=== PATIENT | male | born 1975 | race American Indian/Alaskan Native ===

== ENCOUNTER 2017-06-15 01:13 | Observation (INO) | payer MEDICAID, OTHER ==
--- NOTE | 2017-06-15 02:01 | ED PDOC ---
Arrival/HPI - General Time Seen by Provider: 06/15/17 01:57 Historian: Patient - History of Present Illness Narrative History of Present Illness (Text): 06/15/17 02:00 Shoaib Corrales is a 42 year old male, whose past medical history includes Crohn's disease and prostate cancer, who presents to the Emergency department complaining of diffuse abdominal pain for the past 3 days. Patient reports associated nausea, vomiting, and diarrhea. Patient states he is currently visiting from [place] and did not bring his medication with him. Patient denies any fever, chills, chest pain, shortness of breath, urinary symptoms, back pain, neck pain, headache, dizziness, or any other complaints. Time/Duration: < week (3 days) Symptom Onset: Gradual Symptom Course: Unchanged Activities at Onset: Light Context: Home Past Medical History - Provider Review Nursing Documentation Reviewed: Yes Family/Social History - Physician Review Nursing Documentation Reviewed: Yes Family/Social History: Unknown Family HX Allergies/Home Meds Allergies/Adverse Reactions: Allergies codeine Allergy (Verified 06/15/17 02:00) ITCHING Home Medications: Home Meds Medication Instructions Recorded Confirmed Unobtainable 06/15/17 06/15/17 Review of Systems - Physician Review All systems were reviewed & negative as marked: Yes - Review of Systems Constitutional: Normal. absent: Fevers Eyes: Normal ENT: Normal Respiratory: Normal. absent: SOB, Cough Cardiovascular: Normal. absent: Chest Pain Gastrointestinal: Abdominal Pain, Diarrhea, Nausea, Vomiting Genitourinary Male: Normal. absent: Dysuria, Frequency, Hematuria, Urinary Output Changes Musculoskeletal: Normal. absent: Back Pain, Neck Pain Skin: Normal. absent: Rash Neurological: Normal. absent: Headache, Dizziness Endocrine: Normal Hemo/Lymphatic: Normal Psychiatric: Normal Physical Exam Vital Signs Reviewed: Yes Vital Signs Temp Pulse Resp Pulse Ox 06/15/17 02:00 97.9 F 93 H 18 95 Temperature: Afebrile Blood Pressure: Normal Pulse: Regular Respiratory Rate: Normal Appearance: Positive for: Well-Appearing, Non-Toxic, Comfortable Pain Distress: None Mental Status: Positive for: Alert and Oriented X 3 - Systems Exam Head: Present: Atraumatic, Normocephalic Pupils: Present: PERRL Extroacular Muscles: Present: EOMI Conjunctiva: Present: Normal Mouth: Present: Moist Mucous Membranes Neck: Present: Normal Range of Motion Respiratory/Chest: Present: Clear to Auscultation, Good Air Exchange. No: Respiratory Distress, Accessory Muscle Use Cardiovascular: Present: Regular Rate and Rhythm, Normal S1, S2. No: Murmurs Abdomen: Present: Tenderness (Diffuse abdominal tenderness), Normal Bowel Sounds. No: Distention, Peritoneal Signs Back: Present: Normal Inspection Upper Extremity: Present: Normal Inspection. No: Cyanosis, Edema Lower Extremity: Present: Normal Inspection. No: Edema Neurological: Present: GCS=15, CN II-XII Intact, Speech Normal Skin: Present: Warm, Dry, Normal Color. No: Rashes Psychiatric: Present: Alert, Oriented x 3, Normal Insight, Normal Concentration Medical Decision Making ED Course and Treatment: 06/15/17 02:00 Impression: 42 year old male complaining of diffuse abdominal pain, nausea, vomiting, diarrhea for the past 3 days. Plan: -- CT Abdomen and Pelvis with IV contrast -- Labs, lipase -- Urinalysis -- IV fluids -- Zofran -- Pepcid -- Dilaudid -- Reassess and disposition Progress Notes: 06/15/17 05:05 CT Abdomen and Pelvis shows: Limitations: Lack of intravenous contrast. Motion artifact - mild. Lower thorax: Paraseptal emphysematous changes. Minimal atelectasis. LEFT lower lobe calcified granuloma. ABDOMEN: Liver: Low-attenuation lesion with benign imaging features. Gallbladder and bile ducts: No calcified stones. No ductal dilation. Pancreas: Unremarkable. No ductal dilation. Spleen: Few splenic calcifications. No splenomegaly. Adrenals: Mild hypertrophy of adrenal glands. Kidneys and ureters: No renal calculi. No hydronephrosis. Stomach and bowel: No definite mural thickening. No obstruction. Appendix: Normal caliber. No inflammation. Appendicolith. PELVIS: Bladder: Unremarkable. No stones. Reproductive: Mildly enlarged prostate. ABDOMEN and PELVIS: Intraperitoneal space: No significant fluid collection. No free air. Bones/joints: No acute fracture. Soft tissues: Unremarkable. Vasculature: Unremarkable. No aneurysm. Lymph nodes: No pathologically enlarged lymph nodes. IMPRESSION: 1. No definite acute intraabdominal abnormality. 2. Liver lesion. No follow-up is necessary. 3. Incidental/non-acute findings are described above. 06/15/17 05:[address] Castaneda, who requests pt go to hospitalist service. 06/15/17 05:33 Case discussed with biomedical equipment support specialist media liaison officer, who is aware and agrees with plan. Case discussed with Dr. Evelin Bonilla, who is aware and agrees with plan. Accepts pt in to hospitalist service. - Lab Interpretations Lab Results: 06/15/17 02:38 06/15/17 02:38 Lab Results 06/15/17 02:38: WBC 7.5, RBC 4.87, Hgb 14.4, Hct 43.0, MCV 88.3, MCH 29.6, MCHC 33.5, RDW 14.8 H, Plt Count 354, MPV 9.4 06/15/17 02:38: Sodium 135, Potassium 4.1, Chloride 101, Carbon Dioxide 22, Anion Gap 16, BUN 15, Creatinine 1.0, Est GFR ( Amer) > 60, Est GFR (Non- Af Amer) > 60, Random Glucose 87, Calcium 9.0, Total Bilirubin 0.7, AST 45, ALT 39, Alkaline Phosphatase 70, Total Protein 7.6, Albumin 4.5, Globulin 3.1, Albumin/Globulin Ratio 1.5, Lipase 691 H I have reviewed the lab results: Yes - RAD Interpretation Radiology Orders: 06/15/17 03:11 ABD & PELVIS W/O PO OR IV CONT [CT] Stat Pleat Taper: Radiologist - Medication Orders Current Medication Orders: Discontinued Medications Famotidine (Pepcid) 20 mg IVP STAT STA Stop: 06/15/17 02:06 Last Admin: 06/15/17 02:41 Dose: 20 mg IVP Administration Document 06/15/17 02:41 [email or web address] (Rec: 06/15/17 02:41 CAST [id number]) Charges for Administration # of IVP Administrations 1 Hydromorphone HCl (Dilaudid) 1 mg IVP STAT STA Stop: 06/15/17 02:06 Last Admin: 06/15/17 02:40 Dose: 1 mg MAR Pain Assessment Document 06/15/17 02:40 [email or web address] (Rec: 06/15/17 02:41 [email or web address] [id number]) Pain Reassessment Is this a pain reassessment? No Sleep Is patient sleeping during reassessment? No Presence of Pain Presence of Pain Yes Pain Scale Used Pain Scale Used Numeric Location Pain Location Body Site Abdomen Description Description Constant Intensity of Pain at present 9 Pain Behavior Facial Grimacing Aggravating Factors Changing Position Alleviating Factors/Management Position Change Techniques Alleviating Factors Medication IVP Administration Document 06/15/17 02:40 [email or web address] (Rec: 06/15/17 02:41 [email or web address] [id number]- [id number]) Charges for Administration # of IVP Administrations 1 Hydromorphone HCl (Dilaudid) 2 mg IVP STAT STA Stop: 06/15/17 03:12 Last Admin: 06/15/17 03:38 Dose: 2 mg MAR Pain Assessment Document 06/15/17 03:38 ANETTE (Rec: 06/15/17 03:38 ANETTE [facility]) Pain Reassessment Is this a pain reassessment? No IVP Administration Document 06/15/17 03:38 ANETTE (Rec: 06/15/17 03:38 ANETTE [facility]) Charges for Administration # of IVP Administrations 1 Sodium Chloride (Sodium Chloride 0.9%) 1,000 mls @ 999 mls/hr IV .Q1H1M STA Stop: 06/15/17 03:05 Last Admin: 06/15/17 02:41 Dose: 999 mls/hr eMAR Start Stop Document 06/15/17 02:41 [email or web address] (Rec: 06/15/17 02:41 [email or web address] [facility] [place] [id number]- [id number]) Intravenous Solution Start Date 06/15/17 Start Time 02:41 End Date 06/15/17 Ondansetron HCl (Zofran Inj) 4 mg IVP ONCE ONE Stop: 06/15/17 02:06 Last Admin: 06/15/17 02:41 Dose: 4 mg IVP Administration Document 06/15/17 02:41 [email or web address] (Rec: 06/15/17 02:41 [email or web address] [facility] [id number]- [id number]) Charges for Administration # of IVP Administrations 1 - Scribe Statement The provider has reviewed the documentation as recorded by the Evan Rodríguez Provider Scribe Attestation: All medical record entries made by the Scribe were at my direction and personally dictated by me. I have reviewed the chart and agree that the record accurately reflects my personal performance of the history, physical exam, medical decision making, and the department course for this patient. I have also personally directed, reviewed, and agree with the discharge instructions and disposition. Disposition/Present on Arrival - Present on Arrival Any Indicators Present on Arrival: No History of DVT/PE: No History of Uncontrolled Diabetes: No Urinary Catheter: No History of Decub. Ulcer: No History Surgical Site Infection Following: None - Disposition Have Diagnosis and Disposition been Completed?: Yes Diagnosis: Intractable abdominal pain, Crohns disease Disposition: HOSPITALIZED Disposition Time: 05:20 Patient Problems: Current Active Problems Problem Status Onset Crohns disease Acute Intractable abdominal pain Acute Condition: STABLE
[2017-06-15] MEDS ORDERED: HYDROmorphone 1 mg/ml ISec IVP STA (02:05)
[2017-06-15] MEDS ORDERED: Sodium Chloride 0.9% 1,000 ML IV STA (02:05)
[2017-06-15 03:00] LABS: HEMOGLOBIN 14.4 g/dL (14.0-18.0); MEAN CELL VOLUME 88.3 fl (80.0-105.0); MEAN CORPUSCULAR HEMOGLOBIN 29.6 pg (25.0-35.0); MEAN CORPUSCULAR HGB CONC 33.5 g/dl (31.0-37.0); MEAN PLATELET VOLUME 9.4 fl (7.0-11.0); RBC 4.87 10^6/uL (3.5-6.1); RED CELL DISTRIBUTION WIDTH 14.8 % (11.5-14.5); WHITE BLOOD COUNT 7.5 10^3/ul (4.5-11.0)
[2017-06-15] MEDS ORDERED: HYDROmorphone 2 mg/ml ISec IVP STA (03:11)
[2017-06-15 03:20] LABS: ALB/GLOB RATIO 1.5 (1.1-1.8); ALBUMIN 4.5 g/dL (3.0-4.8); ALT/SGPT 39 U/L (7-56); AST/SGOT 45 U/L (17-59); BLOOD UREA NITROGEN 15 mg/dL (7-21); GFR AFRICAN-AMERICAN > 60; GFR NON-AFRICAN AMERICAN > 60; LIPASE 691 U/L (23-300)
--- NOTE | 2017-06-15 05:03 | CT ---
EXAM: CT Abdomen and Pelvis Without Intravenous Contrast CLINICAL HISTORY: 42 years old, male; Pain; Abdominal pain TECHNIQUE: Axial computed tomography images of the abdomen and pelvis without intravenous contrast. All CT scans at this facility use one or more dose reduction techniques, viz.: automated exposure control; ma/kV adjustment per patient size (including targeted exams where dose is matched to indication; i.e. head); or iterative reconstruction technique. Coronal and sagittal reformatted images were created and reviewed. COMPARISON: No relevant prior studies available. FINDINGS: Limitations: Lack of intravenous contrast. Motion artifact - mild. Lower thorax: Paraseptal emphysematous changes. Minimal atelectasis. LEFT lower lobe calcified granuloma. ABDOMEN: Liver: Low-attenuation lesion with benign imaging features. Gallbladder and bile ducts: No calcified stones. No ductal dilation. Pancreas: Unremarkable. No ductal dilation. Spleen: Few splenic calcifications. No splenomegaly. Adrenals: Mild hypertrophy of adrenal glands. Kidneys and ureters: No renal calculi. No hydronephrosis. Stomach and bowel: No definite mural thickening. No obstruction. Appendix: Normal caliber. No inflammation. Appendicolith. PELVIS: Bladder: Unremarkable. No stones. Reproductive: Mildly enlarged prostate. ABDOMEN and PELVIS: Intraperitoneal space: No significant fluid collection. No free air. Bones/joints: No acute fracture. Soft tissues: Unremarkable. Vasculature: Unremarkable. No aneurysm. Lymph nodes: No pathologically enlarged lymph nodes. IMPRESSION: 1. No definite acute intraabdominal abnormality. 2. Liver lesion. No follow-up is necessary. 3. Incidental/non-acute findings are described above.
--- NOTE | 2017-06-15 06:29 | CP.PCM.HP ---
History of Present Illness - History of Present Illness History of Present Illness: Mr. Corrales is a 42 year old AA male with a past medical history significant for Crohn's disease, marijuana abuse and recently diagnosed prostate cancer who is visiting [place] from [place] and presents to the [facility] with a chief complaint of intermittent epigastric and LLQ abdominal pain with associated N/V and one episode of watery nonbloody diarrhea. Patient states that he was at rest in his hotel on Wednesday evening when his abdominal pain started and denies any inciting event. He states that after the pain started, he had nausea and two episodes of nonbloody vomiting. The pain continued without nausea or vomiting until last night when patient reports that he had one more episode of nonbloody vomiting and one episode of nonbloody diarrhea. He reports that he has a history of Crohn's but does not recall the medications that he is taking. He denies any fever, chills, sick contacts, recent antibiotic use, recent hospitalizations, headache, changes in his vision, chest pain, palpitations, SOB , cough, wheezing, constipation, hematemesis, hematochezia, melena, burning/ pain with urination, rashes, joint pain, back pain, neck pain/stiffness, or any numbness/tingling/weakness of any extremity. PMH: Crohn's disease, marijuana abuse and recently diagnosed prostate cancer PSH: Denies Family History: Denies Social History: Current smoker with 25 year pack smoking history, daily marijuana use and denies alcohol or any other illicit drug use; works as a landscape crew member Allergies: codeine Home Meds: Could not recall Present on Admission - Present on Admission Any Indicators Present on Admission: No Review of Systems - Review of Systems Review of Systems: As per HPI Past Patient History - Infectious Disease Hx of Infectious Diseases: None - Tetanus Immunizations Tetanus Immunization: Unknown - Past Social History Smoking Status: Light Smoker < 10 Cigarettes Daily - CARDIAC Hx Cardiac Disorders: No - PULMONARY Hx Respiratory Disorders: No - NEUROLOGICAL Hx Neurological Disorder: No - HEENT Hx HEENT Problems: No - RENAL Hx Chronic Kidney Disease: No - ENDOCRINE/METABOLIC Hx Endocrine Disorders: No - HEMATOLOGICAL/ONCOLOGICAL Hx Blood Disorders: No - INTEGUMENTARY Hx Dermatological Problems: No - MUSCULOSKELETAL/RHEUMATOLOGICAL Hx Musculoskeletal Disorders: No - GASTROINTESTINAL Hx Crohn's Disease: Yes - GENITOURINARY/GYNECOLOGICAL Hx Prostate Cancer: Yes - PSYCHIATRIC Hx Anxiety: Yes Hx Substance Use: No - SURGICAL HISTORY Hx Surgeries: No Meds Allergies/Adverse Reactions: Allergies Allergy/AdvReac Type Severity Reaction Status Date / Time codeine Allergy ITCHING Verified 06/15/17 02:00 Physical Exam - Constitutional Appears: Non-toxic, No Acute Distress - Head Exam Head Exam: ATRAUMATIC, NORMAL INSPECTION, NORMOCEPHALIC - Eye Exam Eye Exam: EOMI, Normal appearance, PERRL Pupil Exam: NORMAL ACCOMODATION, PERRL - ENT Exam ENT Exam: Mucous Membranes Moist, Normal Exam - Neck Exam Neck exam: Positive for: Full Rom, Normal Inspection. Negative for: Lymphadenopathy, Meningismus, Tenderness, Thyromegaly - Respiratory Exam Respiratory Exam: Clear to Auscultation Bilateral, NORMAL BREATHING PATTERN. absent: Accessory Muscle Use, Chest Wall Tenderness, Decreased Breath Sounds, Prolonged Expiratory Phase, Rales, Rhonchi, Wheezes, Respiratory Distress, Stridor - Cardiovascular Exam Cardiovascular Exam: REGULAR RHYTHM, RRR, +S1, +S2. absent: Bradycardia, Tachycardia, Clicks, Diastolic murmur, Gallop, Irregular Rhythm, JVD, Rubs, +S4 , Systolic Murmur - GI/Abdominal Exam GI & Abdominal Exam: Normal Bowel Sounds, Soft, Tenderness (TTP in epigastric and LLQ regions). absent: Bruit, Diminished Bowel Sounds, Distended, Firm, Guarding, Hernia, Hyperactive Bowel Sounds, Hypoactive Bowel Sounds, Mass, Organomegaly, Pulsatile Mass, Rebound, Rigid - Rectal Exam Rectal Exam: Deferred - Extremities Exam Extremities exam: Positive for: full ROM, normal capillary refill, normal inspection, pedal pulses present. Negative for: calf tenderness, joint swelling , pedal edema, tenderness - Back Exam Back exam: FULL ROM, NORMAL INSPECTION. absent: CVA tenderness (L), CVA tenderness (R), muscle spasm, paraspinal tenderness, rash noted, tenderness, vertebral tenderness - Neurological Exam Neurological exam: Alert, CN II-XII Intact, Normal Gait, Oriented x3 - Psychiatric Exam Psychiatric exam: Normal Affect, Normal Mood - Skin Skin Exam: Dry, Intact, Normal Color, Warm Results - Vital Signs Recent Vital Signs: Last Vital Signs Temp 97.9 F 06/15/17 02:00 Pulse 93 H 06/15/17 02:00 Resp 18 06/15/17 02:00 BP 136/84 06/15/17 02:00 Pulse Ox 95 06/15/17 02:00 - Labs Result Diagrams: 06/15/17 02:38 06/15/17 02:38 Assessment & Plan - Assessment and Plan (Free Text) Assessment: 42 year old AA male with a past medical history significant for Crohn's disease , marijuana abuse and recently diagnosed prostate cancer who is visiting [place] from [place] and presents to the [facility] with a chief complaint of intermittent epigastric and LLQ abdominal pain with associated N/V and one episode of watery nonbloody diarrhea. CT Abdomen/Pelvis showed no abnormalities requiring intervention. Patients lipase was found to be elevated. Plan: 1. Acute Pancreatitis -Lipase found to be elevated at 691 -NS at 200mls/hr -Zofran 4mg Q4H PRN for N/V -Dilaudid 1mg Q4H PRN for pain control -Lipid panel, alcohol level, UDS, and serial lipase pending -NPO diet -GI consulted 2. Acute Diarrhea with history of Crohn's Disease -Stool C/S, FOBT, Fecal Leukocytes, and C. Diff Toxin/Antigen pending -Daily CBC and CMP GI Prophylaxis: Protonix DVT Prophylaxis: Heparin Patient seen and case discussed with attending, Dr. Matteo Bonilla. - Date & Time Date: 06/15/17 Time: 06:59 Decision To Admit - Pt Status Changed To: Hospital Disposition Of: Observation - . Bed Request Type: Med/Surg
[2017-06-15] MEDS ORDERED: Sodium Chloride 0.9% 1,000 ML IV SCH (06:30)
[2017-06-15 07:31] LABS: URINE BILIRUBIN NEGATIVE (NEGATIVE); URINE BLOOD NEGATIVE (NEGATIVE); URINE GLUCOSE (UA) NEGATIVE (NEGATIVE); URINE LEUKOCYTE ESTERASE NEGATIVE Leu/uL (NEGATIVE); URINE NITRATE NEGATIVE (NEGATIVE); URINE PROTEIN NEGATIVE mg/dL (<30 mg/dL); URINE UROBILINOGEN 0.2 E.U./dL (<1 E.U./dL)
[2017-06-15 07:32] LABS: URINE APPEARANCE CLEAR (CLEAR); URINE COLOR YELLOW (YELLOW)
[2017-06-15] MEDS: HYDROmorphone 1 mg/ml ISec IVP PRN ×4 (07:44→21:54)
[2017-06-15 07:46] LABS: HDL CHOLESTEROL 60 mg/dL (29-60)
[2017-06-15 07:57] LABS: LDL CHOLESTEROL 60 mg/dL (0-129)
[2017-06-15 08:33] LABS: BARBITURATES, UR NEGATIVE (NEGATIVE); BENZODIAZEPINES, UR POSITIVE (NEGATIVE); OPIATES, UR POSITIVE (NEGATIVE); PHENCYCLIDINE, UR NEGATIVE (NEGATIVE)
[2017-06-15] MEDS: Sodium Chloride 0.9% 1,000 ML IV SCH ×3 (10:00→16:57)
[2017-06-15] MEDS ORDERED: Pneumococcal 23-Valent Vaccine IM ONE (10:36)
[2017-06-15] MEDS ORDERED: Influenza Vaccine 60 mcg/0.5 mL SYR (4YR UP) IM ONE (10:36)
--- NOTE | 2017-06-16 01:22 | CON ---
DATE: 06/15/2017 HISTORY OF PRESENT ILLNESS: I saw Mr. Corrales this afternoon. This is a 42-year-old black male, lives in [place], admitted with complaints of severe abdominal pain, nausea, vomiting, and diarrhea, especially over the past 2 weeks. Symptoms have exacerbated after the holidays. PAST MEDICAL HISTORY: Consists of Crohn's disease, apparently localized to colon by his history as well as newly diagnosed prostate cancer, not metastatic. He indicates that he was visiting from [place] and did not bring his medication samples with him from his [place]-based [employer]. He did indicate that the medications he has been receiving name of which he could not recall were not working. Apparently, he has been tried on different medications including Pentasa, mesalamine, Uceris, . These apparently did not work well. At the current time point at the bedside, the patient indicates the pain is diffuse, does have epigastric plus left upper quadrant discomfort, but most of his pain is in the periumbilical area, left paraumbilical and left lower quadrant plus suprapubic. He does have issues when voiding urine. PHYSICAL EXAMINATION: VITAL SIGNS: I reviewed this patient's vital signs. HEENT: Noncontributory. LUNGS: Clear to auscultation; however, anteriorly there were irregular breath sounds. HEART: Regular rhythm. ABDOMEN: Mildly distended, nontender in the area of the right paraumbilical and right upper quadrant. Mild tenderness elicited in the area of the right above the umbilicus localized. He is tender in the epigastric area as well as in the left upper quadrant, subcostal. There was a fullness plus moderate tenderness noted in the left paraumbilical and especially in the left lower quadrant. LABORATORY DATA: Reviewed this patient's laboratory data, which includes a WBC of 7.5 with H and H of 14 and 43 and platelet count of 354. Chemistries noncontributory except for lipase of 691. Urine for the most part negative. Drug screen positive for opioids, amphetamines, cocaine, and cannabinoids. I reviewed this patient's CT report. The CT does not indicate evidence of inflammatory bowel disease involving the distal colon. CT indicates no calcified stones, gallbladder, and bowel ducts within normal limits. No lesion on pancreas. No calculi or hydronephrosis. Small bowel is pretty much noncontributory. There is an "indefinite wart or lesion, characterization probably benign." ASSESSMENT AND PLAN: This is a 42-year-old black male with past medical history of newly diagnosed prostate cancer and probable Crohn's disease, who has been found to be nonresponsive to previous medications. The patient requested updated state of the art medication for "Crohn's treatment;" however, he was advised that no such medication exist in the hospital formulary. For a patient with disease for quite a period was the most recent medication that he has been on. I did discuss possibility of use of low-dose hydrocortisone therapy with the patient as well as Dr. Victor. For localized disease, the patient produced a reasonable response. We will check response tomorrow morning. Subsequently, we will probably advance diet if he has a good result with this. The analgesics ordered for the patient will be regulated by the house staff. Nain De La Fuente DO
[2017-06-16] MEDS: HYDROmorphone 1 mg/ml ISec IVP PRN (06:07)
--- NOTE | 2017-06-16 06:51 | CP.PCM.PN ---
Subjective - Date & Time of Evaluation Date of Evaluation: 06/16/17 Time of Evaluation: 05:45 - Subjective Subjective: Patient has very poor veins,needs iv access. Objective - Vital Signs/Intake and Output Vital Signs (last 24 hours): Temp Pulse Resp BP Pulse Ox 98.1 F 86 18 150/90 99 06/15/17 06:42 06/15/17 06:42 06/15/17 10:18 06/15/17 09:05 06/15/17 09:05 Intake and Output: 06/15/17 06/16/17 18:59 06:59 Intake Total 600 960 Balance 600 960 - Medications Medications: Current Medications Alprazolam (Xanax) 0.5 mg PO TID PRN; Protocol PRN Reason: Anxiety Last Admin: 06/16/17 06:12 Dose: 0.5 mg Heparin Sodium (Porcine) (Heparin) 5,000 units SC Q12 [facility] PRN Reason: Protocol Last Admin: 06/15/17 21:41 Dose: Not Given Hydrocortisone Sodium Succinate (Solu-Cortef) 100 mg IVP Q12 [facility] Stop: 06/18/17 23:59 Hydromorphone HCl (Dilaudid) 1 mg IVP Q4H PRN PRN Reason: Pain, moderate (4-7) Last Admin: 06/16/17 06:07 Dose: 1 mg Sodium Chloride (Sodium Chloride 0.9%) 1,000 mls @ 200 mls/hr IV .Q5H [facility] Last Admin: 06/15/17 16:57 Dose: 200 mls/hr Ondansetron HCl (Zofran Inj) 4 mg IVP Q4H PRN PRN Reason: Nausea/Vomiting Last Admin: 06/15/17 21:54 Dose: 4 mg Pantoprazole Sodium (Protonix Inj) 40 mg IVP DAILY [facility] Last Admin: 06/15/17 10:00 Dose: Not Given - Constitutional Appears: No Acute Distress Assessment and Plan - Assessment and Plan (Free Text) Assessment: Poor venous access Plan: Multiple attempts made to insert hep lock were not successful due to very poor veins. Suggest PICC line or Midline. For now pt was given Dilaudid sc instead of IV.
[2017-06-16 06:57] LABS: GRAN # 4.97 (1.4-6.5); GRAN % 80.5 % (50.0-68.0); HEMOGLOBIN 14.5 g/dL (14.0-18.0); LYMPH # 0.8 (1.2-3.4); LYMPH % 12.9 % (22.0-35.0); MEAN CORPUSCULAR HEMOGLOBIN 29.6 pg (25.0-35.0); MEAN CORPUSCULAR HGB CONC 32.3 g/dl (31.0-37.0); MEAN PLATELET VOLUME 9.9 fl (7.0-11.0); MONO # 0.4 (0.1-0.6); MONO % 6.6 % (1.0-6.0); RBC 4.9 10^6/uL (3.5-6.1); RED CELL DISTRIBUTION WIDTH 14.9 % (11.5-14.5); WHITE BLOOD COUNT 6.2 10^3/ul (4.5-11.0)
[2017-06-16 07:37] LABS: ALB/GLOB RATIO 1.3 (1.1-1.8); ALT/SGPT 34 U/L (7-56); AST/SGOT 30 U/L (17-59); BLOOD UREA NITROGEN 7 mg/dL (7-21); GFR AFRICAN-AMERICAN > 60; GFR NON-AFRICAN AMERICAN > 60; LIPASE 189 U/L (23-300)
[2017-06-16 07:46] LABS: MEAN CELL VOLUME 91.6 fl (80.0-105.0)
[2017-06-16 08:03] VITALS: BP 139/100; PULSE 76; RESP 16; TEMP 97.4; O2SAT 100
--- NOTE | 2017-06-16 08:50 | PN ---
DATE: 06/16/2017 SUBJECTIVE: I saw Mr. Corrales this morning. This is a 42-year-old black male with complaints related to severe abdominal pain, nausea, vomiting, diarrhea over the past 2 weeks. The patient indicated some resolution of his symptoms for the past 24 hours after initiation of steroid therapy. The patient's abdomen still mildly distended, still experiencing some discomfort mainly at the left lower quadrant; however, the epigastric and left upper quadrant area has subsided. The patient requested advance of diet. PHYSICAL EXAMINATION: GENERAL: I reviewed this patient's vital signs. HEENT: Noncontributory. LUNGS: Clear to auscultation. HEART: Regular rhythm. ABDOMEN: Soft, mildly distended. It is tender in the area of the left periumbilical area as well as in the left lower quadrant. LABORATORY DATA: Pending for today. ASSESSMENT AND PLAN: This is a 42-year-old black male, lives in [place], admitted with complaints of nausea, vomiting, pain, diarrhea probably secondary to inflammatory bowel component. Since the patient had a significant response through the IV steroid therapy yesterday, we administered the same today, but assuming that an IV access can be obtained. If not, the patient will be started on a tapering dose of prednisone starting at 30 mg daily. The patient requesting advance of diet. Therefore, we will change diet, all to small portions or very soft, low residue at his request. Nain De La Fuente DO
[2017-06-16] MEDS ORDERED: HYDROmorphone 1 mg/ml ISec IM STA (11:46)
--- NOTE | 2017-06-16 12:00 | CP.PCM.DIS ---
<Eliazar Neal - Last Filed: 06/16/17 11:49> Provider - Provider Date of Admission: 06/15/17 05:21 Attending physician: Kanu Victor MD Time Spent in preparation of Discharge (in minutes): 45 Diagnosis - Discharge Diagnosis (1) Crohns disease Status: Acute Priority: Medium (2) Intractable abdominal pain Status: Acute Priority: Medium Hospital Course - Lab Results Lab Results: Most Recent Lab Values WBC 6.2 10^3/ul (4.5-11.0) 06/16/17 06:00 RBC 4.90 10^6/uL (3.5-6.1) 06/16/17 06:00 Hgb 14.5 g/dL (14.0-18.0) 06/16/17 06:00 Hct 44.9 % (42.0-52.0) 06/16/17 06:00 MCV 91.6 fl (80.0-105.0) D 06/16/17 06:00 MCH 29.6 pg (25.0-35.0) 06/16/17 06:00 MCHC 32.3 g/dl (31.0-37.0) 06/16/17 06:00 RDW 14.9 % (11.5-14.5) H 06/16/17 06:00 Plt Count 341 10^3/uL (120.0-450.0) 06/16/17 06:00 MPV 9.9 fl (7.0-11.0) 06/16/17 06:00 Gran % 80.5 % (50.0-68.0) H 06/16/17 06:00 Lymph % (Auto) 12.9 % (22.0-35.0) L 06/16/17 06:00 [place] % (Auto) 6.6 % (1.0-6.0) H 06/16/17 06:00 Eos % (Auto) 0.0 % (1.5-5.0) L 06/16/17 06:00 Baso % (Auto) 0.0 % (0.0-3.0) 06/16/17 06:00 Gran # 4.97 (1.4-6.5) 06/16/17 06:00 Lymph # 0.8 (1.2-3.4) L 06/16/17 06:00 [place] # 0.4 (0.1-0.6) 06/16/17 06:00 Eos # 0.0 (0.0-0.7) 06/16/17 06:00 Baso # 0.00 K/mm3 (0.0-2.0) 06/16/17 06:00 Sodium 139 mmol/L (132-148) 06/16/17 06:00 Potassium 5.1 mmol/L (3.6-5.0) H 06/16/17 06:00 Chloride 108 mmol/L (98-107) H 06/16/17 06:00 Carbon Dioxide 20 mmol/L (21-33) L 06/16/17 06:00 Anion Gap 17 (10-20) 06/16/17 06:00 BUN 7 mg/dL (7-21) 06/16/17 06:00 Creatinine 0.8 mg/dl (0.8-1.5) 06/16/17 06:00 Est GFR ( Amer) > 60 06/16/17 06:00 Est GFR (Non-Af Amer) > 60 06/16/17 06:00 Random Glucose 98 mg/dL (70-110) 06/16/17 06:00 Calcium 9.0 mg/dL (8.4-10.5) 06/16/17 06:00 Total Bilirubin 0.5 mg/dL (0.2-1.3) 06/16/17 06:00 AST 30 U/L (17-59) 06/16/17 06:00 ALT 34 U/L (7-56) 06/16/17 06:00 Alkaline Phosphatase 65 U/L (38-126) 06/16/17 06:00 Total Protein 7.0 g/dL (5.8-8.3) 06/16/17 06:00 Albumin 4.0 g/dL (3.0-4.8) 06/16/17 06:00 Globulin 3.0 gm/dL 06/16/17 06:00 Albumin/Globulin Ratio 1.3 (1.1-1.8) 06/16/17 06:00 Triglycerides 87 mg/dL (35-160) 06/15/17 02:38 Cholesterol 141 mg/dL (130-200) 06/15/17 02:38 LDL Cholesterol Direct 60 mg/dL (0-129) 06/15/17 02:38 HDL Cholesterol 60 mg/dL (29-60) 06/15/17 02:38 Lipase 189 U/L (23-300) 06/16/17 06:00 Urine Color Yellow (YELLOW) 06/15/17 07:00 Urine Appearance Clear (CLEAR) 06/15/17 07:00 Urine pH 6.0 (4.7-8.0) 06/15/17 07:00 Ur Specific [place] 1.010 (1.005-1.035) 06/15/17 07:00 Urine Protein Negative mg/dL (<30 mg/dL) 06/15/17 07:00 Urine Glucose (UA) Negative mg/dL (NEGATIVE) 06/15/17 07:00 Urine Ketones Negative mg/dL (NEGATIVE) 06/15/17 07:00 Urine Blood Negative (NEGATIVE) 06/15/17 07:00 Urine Nitrate Negative (NEGATIVE) 06/15/17 07:00 Urine Bilirubin Negative (NEGATIVE) 06/15/17 07:00 Urine Urobilinogen 0.2 E.U./dL (<1 E.U./dL) 06/15/17 07:00 Ur Leukocyte Esterase Negative Ramesh/uL (NEGATIVE) 06/15/17 07:00 Urine Opiates Screen Positive (NEGATIVE) H 06/15/17 07:00 Urine Methadone Screen Negative (NEGATIVE) 06/15/17 07:00 Ur Barbiturates Screen Negative (NEGATIVE) 06/15/17 07:00 Ur Phencyclidine Scrn Negative (NEGATIVE) 06/15/17 07:00 Ur Amphetamines Screen Positive (NEGATIVE) H 06/15/17 07:00 U Benzodiazepines Scrn Positive (NEGATIVE) 06/15/17 07:00 U Oth Cocaine Metabols Positive (NEGATIVE) H 06/15/17 07:00 U Cannabinoids Screen Positive (NEGATIVE) H 06/15/17 07:00 Alcohol, Quantitative < 10 mg/dL (0-10) 06/15/17 02:38 - Hospital Course Hospital Course: Patient is a 42 year old male with a past medical history significant for Crohn' s disease, marijuana abuse, and recently diagnosed prostate cancer who was admitted for evaluation and treatment of intermittent epigastric and LLQ abdominal pain. With the use of physical examinations, lab work, and imaging the patient was diagnosed with and treated for a potential Crohns flare. During their hospital stay the patient was seen by gastroenterology and psychiatry whose recommendations were both appreciated and utilized in the care for this patient. During their hospital stay the patient underwent a CT of the abdomen and pelvis which was reviewed, appreciated, and utilized in the management of the patients clinical course. Patient was treated with steroids, analgesics, amongst other empiric/therapeutic medications. At this time the patient is medically stable for discharge. Patient understands and appreciates discharge plan. Patient instructed to follow up with primary care physicians and referrals within three to five days from discharge. Furthermore, the patient is instructed to take medications as prescribed and to return to emergency room for evaluation of intractable headache, fever, chills, dizziness, chest pain, shortness of breath, abdominal pain, nausea, vomiting, diarrhea, constipation, and urinary symptoms. This is a brief summary of the patients hospital course. Please see patient chart for full details. Discharge Exam - Head Exam Head Exam: ATRAUMATIC, NORMAL INSPECTION, NORMOCEPHALIC - Additional Findings Additional findings: - Head Exam Head Exam: ATRAUMATIC, NORMAL INSPECTION, NORMOCEPHALIC - Eye Exam Eye Exam: EOMI, Normal appearance, PERRL Pupil Exam: NORMAL ACCOMODATION, PERRL - ENT Exam ENT Exam: Mucous Membranes Moist, Normal Exam - Neck Exam Neck exam: Positive for: Full Rom, Normal Inspection. Negative for: Lymphadenopathy, Meningismus, Tenderness, Thyromegaly - Respiratory Exam Respiratory Exam: Clear to Auscultation Bilateral, NORMAL BREATHING PATTERN. absent: Accessory Muscle Use - Cardiovascular Exam Cardiovascular Exam: REGULAR RHYTHM, RRR, +S1, +S2. absent: Bradycardia, Tachycardia, Clicks, Diastolic murmur, Gallop, Irregular Rhythm, JVD, Rubs, +S4 , Systolic Murmur - GI/Abdominal Exam GI & Abdominal Exam: Normal Bowel Sounds, Soft absent: Bruit, Diminished Bowel Sounds, Distended, Firm, Guarding, Hernia, Hyperactive Bowel Sounds - Extremities Exam Extremities exam: Positive for: full ROM, normal capillary refill, normal inspection, pedal pulses present. Negative for: calf tenderness, joint swelling , pedal edema, tenderness - Back Exam Back exam: FULL ROM, NORMAL INSPECTION. absent: CVA tenderness (L), CVA tenderness (R), muscle spasm, paraspinal tenderness, rash noted, tenderness, vertebral tenderness - Neurological Exam Neurological exam: AAO x 3, CN II- XII intact, muscle strength 5/5 throughout, Patient is awake, alert, responds to verbal stimuli, answers questions appropriately, follows commands, and moves extremities past midline - Psychiatric Exam Psychiatric exam: Normal Affect, Normal Mood - Skin Skin Exam: Dry, Intact, Normal Color, Warm Discharge Plan - Discharge Medications Prescriptions: Oxycodone HCl/Acetaminophen [Percocet 7.5-325 mg Tablet] 1 each PO Q6H PRN #6 tablet PRN Reason: Pain, Moderate (4-7) predniSONE [predniSONE Tab] 5 mg PO DAILY #6 tab - Follow Up Plan Condition: STABLE Disposition: HOME/ ROUTINE Patient education suggested?: Yes Instructions: Abdominal Pain (ED) Additional Instructions: Patient Instructions: Take medications as prescribed. Follow up with PMD within three to five days from discharge. Return to the emergency room for evaluation of intractable headache, fever, chills, dizziness, chest pain, shortness of breath, abdominal pain, nausea, vomiting, diarrhea, constipation, and urinary symptoms. <Kanu Victor - Last Filed: 06/16/17 14:34> Provider - Provider Date of Admission: 06/15/17 05:21 Attending physician: Kanu Victor MD Hospital Course - Lab Results Lab Results: Most Recent Lab Values WBC 6.2 10^3/ul (4.5-11.0) 06/16/17 06:00 RBC 4.90 10^6/uL (3.5-6.1) 06/16/17 06:00 Hgb 14.5 g/dL (14.0-18.0) 06/16/17 06:00 Hct 44.9 % (42.0-52.0) 06/16/17 06:00 MCV 91.6 fl (80.0-105.0) D 06/16/17 06:00 MCH 29.6 pg (25.0-35.0) 06/16/17 06:00 MCHC 32.3 g/dl (31.0-37.0) 06/16/17 06:00 RDW 14.9 % (11.5-14.5) H 06/16/17 06:00 Plt Count 341 10^3/uL (120.0-450.0) 06/16/17 06:00 MPV 9.9 fl (7.0-11.0) 06/16/17 06:00 Gran % 80.5 % (50.0-68.0) H 06/16/17 06:00 Lymph % (Auto) 12.9 % (22.0-35.0) L 06/16/17 06:00 [place] % (Auto) 6.6 % (1.0-6.0) H 06/16/17 06:00 Eos % (Auto) 0.0 % (1.5-5.0) L 06/16/17 06:00 Baso % (Auto) 0.0 % (0.0-3.0) 06/16/17 06:00 Gran # 4.97 (1.4-6.5) 06/16/17 06:00 Lymph # 0.8 (1.2-3.4) L 06/16/17 06:00 [place] # 0.4 (0.1-0.6) 06/16/17 06:00 Eos # 0.0 (0.0-0.7) 06/16/17 06:00 Baso # 0.00 K/mm3 (0.0-2.0) 06/16/17 06:00 Sodium 139 mmol/L (132-148) 06/16/17 06:00 Potassium 5.1 mmol/L (3.6-5.0) H 06/16/17 06:00 Chloride 108 mmol/L (98-107) H 06/16/17 06:00 Carbon Dioxide 20 mmol/L (21-33) L 06/16/17 06:00 Anion Gap 17 (10-20) 06/16/17 06:00 BUN 7 mg/dL (7-21) 06/16/17 06:00 Creatinine 0.8 mg/dl (0.8-1.5) 06/16/17 06:00 Est GFR ( Amer) > 60 06/16/17 06:00 Est GFR (Non-Af Amer) > 60 06/16/17 06:00 Random Glucose 98 mg/dL (70-110) 06/16/17 06:00 Calcium 9.0 mg/dL (8.4-10.5) 06/16/17 06:00 Total Bilirubin 0.5 mg/dL (0.2-1.3) 06/16/17 06:00 AST 30 U/L (17-59) 06/16/17 06:00 ALT 34 U/L (7-56) 06/16/17 06:00 Alkaline Phosphatase 65 U/L (38-126) 06/16/17 06:00 Total Protein 7.0 g/dL (5.8-8.3) 06/16/17 06:00 Albumin 4.0 g/dL (3.0-4.8) 06/16/17 06:00 Globulin 3.0 gm/dL 06/16/17 06:00 Albumin/Globulin Ratio 1.3 (1.1-1.8) 06/16/17 06:00 Triglycerides 87 mg/dL (35-160) 06/15/17 02:38 Cholesterol 141 mg/dL (130-200) 06/15/17 02:38 LDL Cholesterol Direct 60 mg/dL (0-129) 06/15/17 02:38 HDL Cholesterol 60 mg/dL (29-60) 06/15/17 02:38 Lipase 189 U/L (23-300) 06/16/17 06:00 Urine Color Yellow (YELLOW) 06/15/17 07:00 Urine Appearance Clear (CLEAR) 06/15/17 07:00 Urine pH 6.0 (4.7-8.0) 06/15/17 07:00 Ur Specific [place] 1.010 (1.005-1.035) 06/15/17 07:00 Urine Protein Negative mg/dL (<30 mg/dL) 06/15/17 07:00 Urine Glucose (UA) Negative mg/dL (NEGATIVE) 06/15/17 07:00 Urine Ketones Negative mg/dL (NEGATIVE) 06/15/17 07:00 Urine Blood Negative (NEGATIVE) 06/15/17 07:00 Urine Nitrate Negative (NEGATIVE) 06/15/17 07:00 Urine Bilirubin Negative (NEGATIVE) 06/15/17 07:00 Urine Urobilinogen 0.2 E.U./dL (<1 E.U./dL) 06/15/17 07:00 Ur Leukocyte Esterase Negative Ramesh/uL (NEGATIVE) 06/15/17 07:00 Urine Opiates Screen Positive (NEGATIVE) H 06/15/17 07:00 Urine Methadone Screen Negative (NEGATIVE) 06/15/17 07:00 Ur Barbiturates Screen Negative (NEGATIVE) 06/15/17 07:00 Ur Phencyclidine Scrn Negative (NEGATIVE) 06/15/17 07:00 Ur Amphetamines Screen Positive (NEGATIVE) H 06/15/17 07:00 U Benzodiazepines Scrn Positive (NEGATIVE) 06/15/17 07:00 U Oth Cocaine Metabols Positive (NEGATIVE) H 06/15/17 07:00 U Cannabinoids Screen Positive (NEGATIVE) H 06/15/17 07:00 Alcohol, Quantitative < 10 mg/dL (0-10) 06/15/17 02:38 Attending/Attestation - Attestation I have personally seen and examined this patient.: Yes I have fully participated in the care of the patient.: Yes I have reviewed all pertinent clinical information, including history, physical exam and plan: Yes Notes (Text): 06/16/17 14:22 42 year old male with past medical history of reported prostate cancer and Crohn 's disease who presented with complaint of abdominal pain. CT abd/pelvis was negative for acute findings. He was seen by GI who started him on steroids for possible Crohn's flare up. His symptoms improved and his diet was advanced which he is tolerating well. He is cleared for discharge by GI on tapering po steroids. Urine drug screen was positive for opiates, cannabinoids, benzodiazepines, amphetamines and cocaine. He denied the use of the latter two. He was counselled on risks of substance and narcotic abuse. He also complained of chronic back pain. He reports history of stage 3-4 prostate cancer. We attempted to call his pmd and urologist but have not received call back. His CT abd/pelvis showed mildly enlarged prostate without any lymphadenopathy. He states he will follow up with his pmd, oncologist and urologist. He was also seen by psychiatrist today and states he will follow up with his psychiatrist as well. He reports he is on percocet for chronic pain as prescribed by his above physicians as well as his pain management physician. He lives in [place] and is currently here on a business trip. Although he was recently prescribed percocet weeks prior he states he didn't bring his pills from [place]. He was prescribed 6 tabs only to follow up with his doctors as above. Patient is discharged home to follow up with his pmd. Strongly encouraged to follow up with his urologist and oncologist. Follow up with pain management and psychiatrist as well. Counselled on risks of continued substance and abuse. Kanu Victor MD Hospitalist.
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
--- NOTE | 2017-06-17 09:04 | CP.PCM.PCO ---
Physician Communication Note - Physician Communication Note Physician Communication Note: pt was discharged
== END 2017-06-16 16:07 | disposition home or self-care (01) ==
LOC: ED 01:13 → ERH 05:21 → 5RNO 08:55
PROVIDERS: ADMIT Internal Medicine; ATTEND Internal Medicine
DX: K50.90 Crohn's disease, unspecified, without complications (principal); C61 Malignant neoplasm of prostate; N40.0 Benign prostatic hyperplasia without lower urinary tract symptoms; F12.10 Cannabis abuse, uncomplicated; G89.29 Other chronic pain; F17.210 Nicotine dependence, cigarettes, uncomplicated; Z79.891 Long term (current) use of opiate analgesic
CPT/HCPCS: 36415; 74176; 80053; 80061; 80320; 80324; 80345; 80346; 80349; 80353; 80358; 80361; 81003; 83690; 83992; 85025; 85027; 96372; 96374; 96375; 96376; 99283; G0378; J1170; J1720; J2405; J7040